=== PATIENT | female | born 1955 | race Caucasian/White ===

== ENCOUNTER 2019-06-29 18:51 | Inpatient (IN) | payer OTHER, MEDICAID ==
[~2019-06-29] VITALS: Ht 157.5 cm; Wt 100.4 kg
[~2019-06-29 18:51] MED LIST: METF-960 PO; ROSI4TAB28 PO
[2019-06-29] MEDS ORDERED: PANT40TA25 PO (20:26)
[2019-06-29] MEDS ORDERED: CARV3 PO (20:26)
[2019-06-29] MEDS ORDERED: ASPI-728 PO (20:26)
[2019-06-29] MEDS ORDERED: FAMO20 PO (20:28)
[2019-06-29] MEDS ORDERED: VENL-67 PO (20:40)
[2019-06-29] MEDS ORDERED: GABA-533 PO (20:40)
[2019-06-29] MEDS ORDERED: HALOPERIDOL 5 MG TABLET PO PRN (20:45)
[2019-06-29] MEDS ORDERED: INFLUENZA VIRUS VACCINE QVS 2019-20 (3YR+)/PF 60 MCG/0.5 ML SYRINGE IM ONE (21:45)
[2019-06-29] MEDS ORDERED: PNEUMOCOCCAL VACCINE POLYVALENT 0.5 ML VIAL [PPSV23] IM ONE (21:45)
[2019-06-29] MEDS: LORazepam 2 MG TABLET PO PRN (21:52)
[2019-06-29 22:12] VITALS: BP 120/80
[2019-06-29] MEDS ORDERED: ALBUTEROL SULFATE HFA 90 MCG/PUFF 8 GM INHALER IH PRN ×2 (22:15→22:45)
[2019-06-29] MEDS ORDERED: ACETAMINOPHEN 325 MG TABLET PO PRN (22:15)
[2019-06-29] MEDS ORDERED: IBUPROFEN 400 MG TABLET PO PRN (22:15)
[2019-06-29] MEDS ORDERED: DOCUSATE SODIUM 100 MG CAPSULE PO PRN (22:45)
[2019-06-29] MEDS ORDERED: GuaiFENesin/D-METHORPHAN [SUGAR-FREE] 200-20MG/10 ML SYRUP UDCUP PO PRN (22:45)
[2019-06-29] MEDS ORDERED: PETROLATUM,WHITE 28 GM JELLY TP PRN (22:45)
[2019-06-29] MEDS ORDERED: CloNIDine HCL 0.1 MG TABLET PO PRN (22:45)
[2019-06-29] MEDS ORDERED: NICOTINE 14 MG/24 HOUR PATCH TD PRN (22:45)
[2019-06-29] MEDS ORDERED: MAGNESIUM HYDROXIDE SUSPENSION 30 ML UDCUP PO PRN (22:45)
[2019-06-29] MEDS ORDERED: ONDANSETRON HCL 4 MG TABLET PO PRN (22:45)
[2019-06-30] MEDS: LORazepam 2 MG TABLET PO PRN ×2 (05:07→10:21)
[2019-06-30 05:11] VITALS: BP 125/89
[2019-06-30 08:02] LABS: BASOPHILS % (AUTO) 0.6 % (0.0-2.0); EOSINOPHILS % (AUTO) 1.5 % (1.0-6.0); HEMATOCRIT 39.2 % (36-46); HEMOGLOBIN 12.8 g/dL (12.0-16.0); LYMPHOCYTES # (AUTO) 3.5 K/uL (1.0-4.8); LYMPHOCYTES % (AUTO) 39.2 % (22.0-44.0); MEAN CORPUSCULAR HEMOGLOBIN 26.7 pg (26.0-34.0); MEAN CORPUSCULAR HGB CONC 32.6 G/dL (31.0-37.0); MEAN CORPUSCULAR VOLUME 82 fL (80-100); MONOCYTES # (AUTO) 0.6 K/uL (0.1-1.0); MONOCYTES % (AUTO) 6.4 % (2.0-9.0); NEUTROPHILS # (AUTO) 4.7 K/uL (1.8-7.7); NEUTROPHILS % (AUTO) 52.3 % (40.0-70.0); PLATELET COUNT (AUTO) 391 K/uL (150-450); RED CELL DISTRIBUTION WIDTH 14.4 % (11.5-14.5)
[2019-06-30 08:26] LABS: HEMOGLOBIN A1C 5.8 % (4.5-6.2)
[2019-06-30 08:33] LABS: ALANINE AMINOTRANSFERASE 25 U/L (12-78); ANION GAP 8 mmol/L (8-16); BILIRUBIN,TOTAL 0.5 mg/dL (0.1-1.0); CALCIUM, TOTAL 9.3 mg/dL (8.8-10.5); CARBON DIOXIDE 25 mmol/L (22-29); CHLORIDE 107 mmol/L (98-107); CHOL/HDL RATIO 4.6 (3.9-5.7); CHOLESTEROL 190 mg/dL (131-200); CREATININE 0.86 mg/dL (0.60-1.30); FREE T4 (FREE THYROXINE) 0.84 ng/dL (0.76-1.46); GLOMERULAR FILTR. RATE CALC > 60 mL/min (>60); GLUCOSE,RANDOM 111 mg/dL (70-110); HDL CHOLESTEROL 41 mg/dL (40-60); LDL CHOL (CALC.) 114 mg/dL (0-130); POTASSIUM 4.5 mmol/L (3.5-5.1); SODIUM SERUM 140 mmol/L (136-145); THYROID STIMULATING HORMONE 1.65 uIU/mL (0.36-3.74); TOTAL PROTEIN, SERUM 7.2 g/dL (6.4-8.2); TRIGLYCERIDES 177 mg/dL (15-150); UREA NITROGEN, BLOOD 15 mg/dL (7-18)
[2019-06-30 08:50] VITALS: BP 139/93
[2019-06-30] MEDS: PANTOPRAZOLE SODIUM 40 MG DR TABLET PO SCH (08:54)
[2019-06-30] MEDS: ASPIRIN 81 MG CHEWABLE TABLET PO SCH (08:54)
[2019-06-30] MEDS: FAMOTIDINE 20 MG TABLET PO SCH ×2 (08:54→16:40)
[2019-06-30] MEDS: CARVEDILOL 3.125 MG TABLET PO SCH ×2 (08:54→16:40)
[2019-06-30 08:56] LABS: ALKALINE PHOSPHATASE 105 U/L (46-116); ASPARTATE AMINOTRANSFERASE 69 U/L (15-37)
[2019-06-30] MEDS: IBUPROFEN 400 MG TABLET PO PRN ×2 (09:51→20:41)
[2019-06-30] MEDS: VENLAFAXINE HCL 75 MG ER CAPSULE PO SCH (11:51)
[2019-06-30 16:18] VITALS: BP 145/89
[2019-06-30 20:35] VITALS: BP 123/80
[2019-06-30] MEDS: RisperiDONE 1 MG TABLET PO SCH (20:36)
[2019-07-01 08:00] VITALS: BP 140/79
[2019-07-01] MEDS: IBUPROFEN 400 MG TABLET PO PRN ×2 (08:02→17:17)
[2019-07-01] MEDS: CARVEDILOL 3.125 MG TABLET PO SCH ×2 (08:03→16:44)
[2019-07-01] MEDS: ASPIRIN 81 MG CHEWABLE TABLET PO SCH (08:05)
[2019-07-01] MEDS: FAMOTIDINE 20 MG TABLET PO SCH ×2 (08:05→16:44)
[2019-07-01] MEDS: VENLAFAXINE HCL 75 MG ER CAPSULE PO SCH (08:05)
[2019-07-01] MEDS: PANTOPRAZOLE SODIUM 40 MG DR TABLET PO SCH (08:05)
[2019-07-01 16:46] VITALS: BP 150/98
[2019-07-01] MEDS: RisperiDONE 1 MG TABLET PO SCH (20:45)
[2019-07-01] MEDS: MAG HYDROX/AL HYDROX/SIMETH ES 30 ML SUSPENSION UDCUP PO PRN (20:50)
[2019-07-01] MEDS: ZOLPIDEM TARTRATE 10 MG TABLET PO PRN (20:58)
[2019-07-02] MEDS: VENLAFAXINE HCL 75 MG ER CAPSULE PO SCH (09:26)
[2019-07-02] MEDS: ASPIRIN 81 MG CHEWABLE TABLET PO SCH (09:27)
[2019-07-02] MEDS: FAMOTIDINE 20 MG TABLET PO SCH ×2 (09:27→17:07)
[2019-07-02] MEDS: CARVEDILOL 3.125 MG TABLET PO SCH ×2 (09:27→17:07)
[2019-07-02] MEDS: PANTOPRAZOLE SODIUM 40 MG DR TABLET PO SCH (09:27)
[2019-07-02 10:00] VITALS: BP 123/86
[2019-07-02] MEDS: LORazepam 2 MG TABLET PO PRN (10:04)
[2019-07-02] MEDS: IBUPROFEN 400 MG TABLET PO PRN ×2 (10:04→20:25)
[2019-07-02 19:20] VITALS: BP 132/77
[2019-07-02] MEDS: MAG HYDROX/AL HYDROX/SIMETH ES 30 ML SUSPENSION UDCUP PO PRN (20:25)
[2019-07-02] MEDS: RisperiDONE 1 MG TABLET PO SCH (20:25)
[2019-07-02] MEDS: LOPERAMIDE HCL 2 MG CAPSULE PO PRN (20:30)
[2019-07-03 08:10] VITALS: BP 117/83
[2019-07-03] MEDS: FAMOTIDINE 20 MG TABLET PO SCH ×2 (09:15→16:49)
[2019-07-03] MEDS: CARVEDILOL 3.125 MG TABLET PO SCH ×2 (09:16→16:49)
[2019-07-03] MEDS: PANTOPRAZOLE SODIUM 40 MG DR TABLET PO SCH (09:16)
[2019-07-03] MEDS: VENLAFAXINE HCL 75 MG ER CAPSULE PO SCH (09:18)
[2019-07-03] MEDS: ASPIRIN 81 MG CHEWABLE TABLET PO SCH (09:18)
[2019-07-03] MEDS: LORazepam 2 MG TABLET PO PRN (10:54)
[2019-07-03 16:54] VITALS: BP 137/97
[2019-07-03] MEDS: IBUPROFEN 400 MG TABLET PO PRN (16:54)
[2019-07-03 17:09] VITALS: BP 137/87
[2019-07-03] MEDS: RisperiDONE 1 MG TABLET PO SCH (21:15)
[2019-07-03] MEDS: ZOLPIDEM TARTRATE 10 MG TABLET PO PRN (21:17)
[2019-07-04 08:01] VITALS: BP 135/100
[2019-07-04] MEDS: IBUPROFEN 400 MG TABLET PO PRN ×2 (08:01→16:57)
[2019-07-04] MEDS: CARVEDILOL 3.125 MG TABLET PO SCH ×2 (08:02→16:55)
[2019-07-04] MEDS: PANTOPRAZOLE SODIUM 40 MG DR TABLET PO SCH (08:02)
[2019-07-04] MEDS: ASPIRIN 81 MG CHEWABLE TABLET PO SCH (08:02)
[2019-07-04] MEDS: FAMOTIDINE 20 MG TABLET PO SCH ×2 (08:03→16:56)
[2019-07-04] MEDS: VENLAFAXINE HCL 75 MG ER CAPSULE PO SCH (08:04)
[2019-07-04 09:01] VITALS: BP 139/90
[2019-07-04] MEDS: BusPIRone HCL 5 MG TABLET PO SCH ×2 (13:17→16:54)
[2019-07-04] MEDS: ACETAMINOPHEN 325 MG TABLET PO PRN (14:31)
[2019-07-04 15:30] VITALS: BP 119/82
[2019-07-04 16:57] VITALS: BP 119/82
[2019-07-04] MEDS: RisperiDONE 1 MG TABLET PO SCH (21:17)
[2019-07-04] MEDS: ZOLPIDEM TARTRATE 10 MG TABLET PO PRN (21:20)
[2019-07-05 08:00] VITALS: BP 128/86
[2019-07-05] MEDS: PANTOPRAZOLE SODIUM 40 MG DR TABLET PO SCH (08:33)
[2019-07-05] MEDS: CARVEDILOL 3.125 MG TABLET PO SCH ×2 (08:33→16:18)
[2019-07-05] MEDS: VENLAFAXINE HCL 75 MG ER CAPSULE PO SCH (08:33)
[2019-07-05] MEDS: FAMOTIDINE 20 MG TABLET PO SCH ×2 (08:33→16:18)
[2019-07-05] MEDS: BusPIRone HCL 5 MG TABLET PO SCH ×3 (08:33→16:17)
[2019-07-05] MEDS: ASPIRIN 81 MG CHEWABLE TABLET PO SCH (08:33)
[2019-07-05] MEDS: ACETAMINOPHEN 325 MG TABLET PO PRN (08:36)
[2019-07-05] MEDS: IBUPROFEN 400 MG TABLET PO PRN ×2 (11:25→22:11)
[2019-07-05 16:00] VITALS: BP 140/92
[2019-07-05] MEDS: LOPERAMIDE HCL 2 MG CAPSULE PO PRN (16:18)
[2019-07-05] MEDS: RisperiDONE 1 MG TABLET PO SCH (20:53)
[2019-07-05 22:00] VITALS: BP 140/81
[2019-07-06] MEDS: ZOLPIDEM TARTRATE 10 MG TABLET PO PRN (00:03)
[2019-07-06 08:00] VITALS: BP 120/70
[2019-07-06] MEDS: ACETAMINOPHEN 325 MG TABLET PO PRN ×2 (08:12→16:29)
[2019-07-06] MEDS: ASPIRIN 81 MG CHEWABLE TABLET PO SCH (09:50)
[2019-07-06] MEDS: VENLAFAXINE HCL 75 MG ER CAPSULE PO SCH (09:50)
[2019-07-06] MEDS: CARVEDILOL 3.125 MG TABLET PO SCH ×2 (09:50→17:11)
[2019-07-06] MEDS: FAMOTIDINE 20 MG TABLET PO SCH ×2 (09:50→17:11)
[2019-07-06] MEDS: PANTOPRAZOLE SODIUM 40 MG DR TABLET PO SCH (09:51)
[2019-07-06] MEDS: BusPIRone HCL 5 MG TABLET PO SCH ×3 (09:51→17:11)
[2019-07-06] MEDS ORDERED: RISP1 PO (10:42)
[2019-07-06] MEDS ORDERED: VENL75CA55 PO (10:42)
[2019-07-06] MEDS ORDERED: BUSP5TAB20 PO (10:42)
[2019-07-06 11:13] VITALS: BP 125/71
[2019-07-06] MEDS: IBUPROFEN 400 MG TABLET PO PRN (11:54)
[2019-07-06] MEDS: LORazepam 2 MG TABLET PO PRN (11:54)
== END 2019-07-06 17:35 | disposition home or self-care (01) | DRG 885 ==
LOC: B2S 21:10 → 3EI 06-30 17:55
DX: F33.3 Major depressive disorder, recurrent, severe with psychotic symptoms (principal); R45.851 Suicidal ideations; Z68.41 Body mass index [BMI] 40.0-44.9, adult; E66.9 Obesity, unspecified; E78.5 Hyperlipidemia, unspecified; F41.9 Anxiety disorder, unspecified; G47.33 Obstructive sleep apnea (adult) (pediatric); I10 Essential (primary) hypertension; I25.10 Atherosclerotic heart disease of native coronary artery without angina pectoris; K21.9 Gastro-esophageal reflux disease without esophagitis; Z79.899 Other long term (current) drug therapy; Z91.5 Personal history of self-harm
CPT/HCPCS: 70450; 83036; 84439; 84443; 94660; J3535; Q0162